=== PATIENT | female | born 1950 | race Caucasian/White ===

== ENCOUNTER 2017-02-06 10:39 | Emergency (ER) | payer MEDICARE, MEDICAID ==
[~2017-02-06] VITALS: Ht 160 cm; Wt 71.2 kg
--- NOTE | 2017-02-06 11:18 | PHYS DOC ---
General Chief Complaint: LOWER EXT PAIN Stated Complaint: LOWER EXTREMITY PAIN Time Seen by MD: 10:58 Source: patient Exam Limitations: no limitations Problems: History of Present Illness Initial Comments Pt is 66/F to ED c/o left leg pain. Patient states she suffered a slip and fall in late spring of this year. She states she slipped and fell to her left hip/buttock. She says she fears she was bruised but she was able to ambulate immediately and symptoms resolved within days. The last several weeks she's had increasing left lower extremity discomfort. She states the discomfort ranges from her left buttock (she points to just inferior to her ischial tuberosity) down to her left calf. She denies other injuries she denies back pain no leg numbness tingling weakness or radiating symptoms. She's had no saddle anesthesia or incontinence. Today while at a doctor's appointment for her the pain increased to the point that she came for evaluation as she felt she may have a blood clot. She saw her doctor for this recently they performed x-rays which showed no bony abnormalities. She did not follow-up for recheck appointment. She incidentally remarks that she has noted she has right ankle swelling. She denies right ankle pain or history of injury and has no other symptoms resulted from that. She is not requesting evaluation for this but mentions it as an aside. Onset: other Severity: mild Pain/Injury Location: left hip, left leg Method of Injury: fell Modifying Factors: worse with jarring, worse with movement, improves with rest Allergies: Coded Allergies: No Known Drug Allergies (Unverified , 02/06/17) Past Medical History Medical History: other (rheumatoid arthritis, hyperlipidemia) Surgical History: noncontributory Social History Smoker: non-smoker Alcohol: none Drugs: none Review of Systems Constitutional: denies chills, denies diaphoresis, denies fever, denies malaise Respiratory: denies cough, denies shortness of breath, denies wheezing Cardiovascular: denies chest pain, denies edema, denies palpitations, denies syncope Gastrointestinal: denies abdominal pain, denies diarrhea, denies nausea, denies vomiting Genitourinary: denies dysuria, denies frequency, denies hematuria Musculoskeletal: see HPI, denies back pain, denies neck pain Psychiatric/Neurological: denies headache, denies numbness, denies paresthesia Physical Exam General Appearance: no apparent distress HEENT: PERRL/EOMI, normal ENT inspection Neck: full range of motion, supple Cardiovascular/Respiratory: regular rate, rhythm, normal peripheral pulses, normal breath sounds, no respiratory distress Back: no CVA tenderness, no vertebral tenderness Hips: bilateral hip non-tender, bilateral hip normal inspection, bilateral hip normal range of motion, bilateral hip no evidence of injury Legs: right leg non-tender, right leg normal inspection, bilateral leg normal range of motion, left leg no evidence of injury, left leg other (the left calf is 3 cm greater circumference than right there is tenderness in the muscle belly of the gastrocnemius no erythema induration or skin changes.) Ankles: left ankle non-tender, left ankle normal inspection, right ankle normal range of motion, left ankle no evidence of injury, right ankle other ( there is 1+ right ankle effusion with localized swelling at the anterior patellar fibular ligament as well as the posterior calcaneofibular ligament, negative drawer no bony tenderness or ecchymosis) Feet: bilateral foot non-tender, bilateral foot normal inspection, bilateral foot normal range of motion, bilateral foot no evidence of injury Neurologic/Tendon: normal sensation, normal motor functions, normal tendon functions (children's), responds to pain Psychiatric: alert, oriented x 3 Skin: normal color, warm/dry Orders, Labs, Meds PATIENT: FRANCINE PAYNE ACCOUNT: [id number] : 1950 LOCATION: ER AGE: 66 SEX: F EXAM STATUS: REG ER ORD. PHYSICIAN: CALLY BAXTER DO REASON: Left leg pain/swelling PROCEDURE: VENOUS LOWER EXTREMITY LEFT Left leg venous Doppler study: Clinical indications: Left leg swelling and pain for one month. Findings: Duplex sonography (including dahl scale evaluation and color flow and waveform spectral analysis) of the proximal aspect of the greater saphenous vein and the proximal aspect of the profunda femoral vein and the entire length of the common femoral and superficial femoral and popliteal veins and the tibioperoneal trunk and the proximal aspect of the posterior tibial and peroneal veins of the left leg was performed. Normal compressibility, augmentation of color Doppler flow after calf compression, and respiratory variation of Doppler flow is seen. Thus, there are no sonographic findings of deep venous thrombosis within these veins. Impression: There are no sonographic findings of deep venous thrombosis within the veins discussed above of the left lower extremity. A 4.3 cm Hopkins's cyst is seen containing a 5 mm loose body. DICTATED AND SIGNED BY: GABRIEL MENEZES MD DATE: 02/06/17 1152 CC: REBECA MARIN; CALLY BAXTER DO ~ D-dimer 0.54 otherwise labs reassuring I discussed findings with the patient. She's had no new or changing symptoms. I discussed the treatment plan she expressed agreement and understanding. Departure Time of Disposition: 12:13 Disposition: 01 HOME, SELF-CARE Diagnosis: left 4.3cm Hopkins cyst, right ankle sprain Condition: GOOD Patient Instructions: Ankle Sprain, Acute, with Phase I Rehab-SportsMed, Hopkins' s Cyst, RICE - Routine Care for Injuries, [id number] Additional Instructions: RICE, see handout. Use walker or wheelchair as needed. Elevate left knee and right ankle as tolerated. Rx: norco 5mg #20 (take with food to avoid nausea; increase fluids/take OTC stool softeners to avoid constipation). Follow up with your doctor Thursday for recheck and to discuss orthopedics referral if needed. Return to ED with new or changing symptoms. CALLY BAXTER DO Feb 06, 2017 11:18
[2017-02-06 11:34] LABS: BASO # 0.1 x10^3/uL (0.0-0.2); BASO % 1 % (0-3); EOS # 0.4 x10^3/uL (0.0-0.7); EOS % 5 % (0-3); HEMATOCRIT 41.8 % (36.0-47.0); HEMOGLOBIN 14.2 g/dL (12.0-15.5); LYMPH # 2.9 x10^3/uL (1.0-4.8); LYMPH % 37 % (24-48); MEAN CORPUSCULAR HEMOGLOBIN 32 pg (25-35); MEAN CORPUSCULAR HGB CONC 34 g/dL (31-37); MEAN CORPUSCULAR VOLUME 94 fL (79-100); MONO # 0.5 x10^3/uL (0.0-1.1); MONO % 6 % (0-9); NEUT # 4.1 x10^3uL (1.8-7.7); NEUT % 51 % (31-73); PLATELET COUNT 292 x10^3/uL (140-400); RED BLOOD COUNT 4.43 x10^6/uL (3.50-5.40); RED CELL DISTRIBUTION WIDTH 13.6 % (11.5-14.5); WHITE BLOOD COUNT 7.9 x10^3/uL (4.0-11.0)
[2017-02-06 11:47] LABS: ALBUMIN 3.4 g/dL (3.4-5.0); ALBUMIN/GLOBULIN RATIO 0.9 (1.0-1.7); CALCIUM 8.6 mg/dL (8.5-10.1); GFR 55.5; POTASSIUM 3.5 mmol/L (3.5-5.1); TOTAL BILIRUBIN 0.4 mg/dL (0.2-1.0); TOTAL PROTEIN 7.4 g/dL (6.4-8.2)
--- NOTE | 2017-02-06 11:56 | RAD ---
Left leg venous Doppler study: Clinical indications: Left leg swelling and pain for one month. Findings: Duplex sonography (including dahl scale evaluation and color flow and waveform spectral analysis) of the proximal aspect of the greater saphenous vein and the proximal aspect of the profunda femoral vein and the entire length of the common femoral and superficial femoral and popliteal veins and the tibioperoneal trunk and the proximal aspect of the posterior tibial and peroneal veins of the left leg was performed. Normal compressibility, augmentation of color Doppler flow after calf compression, and respiratory variation of Doppler flow is seen. Thus, there are no sonographic findings of deep venous thrombosis within these veins. Impression: There are no sonographic findings of deep venous thrombosis within the veins discussed above of the left lower extremity. A 4.3 cm Hopkins's cyst is seen containing a 5 mm loose body.
[2017-02-06 12:10] VITALS: BP 142/61
== END 2017-02-06 12:20 | disposition home or self-care (01) ==
LOC: ER 10:39
DX: M71.22 Synovial cyst of popliteal space [Baker], left knee (principal); S93.402A Sprain of unspecified ligament of left ankle, initial encounter; M19.90 Unspecified osteoarthritis, unspecified site; E78.5 Hyperlipidemia, unspecified; M06.9 Rheumatoid arthritis, unspecified; W01.0XXA Fall on same level from slipping, tripping and stumbling without subsequent striking against object, initial encounter; Y93.89 Activity, other specified; Y99.8 Other external cause status; Y92.89 Other specified places as the place of occurrence of the external cause
CPT/HCPCS: 36415; 80053; 82550; 84484; 85027; 85379; 85610; 85730; 93971; 99285-25